=== PATIENT | male | born 1970 | race Caucasian/White ===

== ENCOUNTER → 2017-04-03 | Outpatient (CLI) | payer OTHER | LOC: FIMAGING 18:18 | PROVIDERS: ATTEND Family Medicine | DX: S83.241A Other tear of medial meniscus, current injury, right knee, initial encounter (principal); M22.41 Chondromalacia patellae, right knee ==

== ENCOUNTER 2017-11-16 13:19 | Emergency (ER) | payer OTHER ==
[2017-11-16] MEDS ORDERED: NS 1,000 ML IV ONE (13:42)
--- NOTE | 2017-11-16 14:05 | EDPHY ---
H & P Stated Complaint: LLQ pain x 4d , Eat/drinking/voiding normal Time Seen by Provider: 11/16/17 13:28 HPI/ROS: This patient complains of 4 day history of left sided abdominal pain that he feels in the left mid belly and lower quadrant. The pain has been achy in nature and he feels that there may be a slight pulse to that same area of his belly compared to baseline. He reports pain peak intensity 5 to 6/10 and current pain at 2/10. Pain worsens at times with a certain movements although he was able to do sit-ups last night without any worsening of the pain. He he reports that the nature the pain feels similar to a gas pain except that it has been constant stay since its onset. He tried Gas-X without any improvement. He reports normal bowel movements without significant change in consistency or color. His last BM was this morning. He presented initially to an urgent care with the symptoms-[facility] urgent care and concerned about potential abdominal diagnoses they referred him to our emergency department for further evaluation. ROS: Constitutional: No fevers. No other constitutional symptoms HEENT: No URI symptoms, sore throat or other complaints new line pulmonary: No shortness of breath or cough Cardiovascular: He denies any heart palpitations or lightheadedness. No chest pain. GI: No nausea vomiting. He denies any worsening of the pain with Valsalva maneuver. He notes no bulge with Valsalva or with sit-ups. : No flank pain posteriorly suspect pain. No testicular pain or swelling. No change in the color of his urine. Integumentary: No diaphoresis or skin rash Endocrine: No complaints complete review of symptoms otherwise negative Source: Patient Exam Limitations: No limitations - Personal History Current Tetanus Diphtheria and Acellular Pertussis (TDAP): Yes - Medical/Surgical History Other PMH: gout. sleep apnea. liposuction - Family History Significant Family History: No pertinent family hx - Social History Smoking Status: Former smoker Alcohol Use: Occasionally Drug Use: None - Physical Exam Exam: General Appearance: Alert, no distress. Eyes: Pupils equal and round no pallor or injection. ENT, Mouth: Mucous membranes moist. Respiratory: There are no retractions, lungs are clear to auscultation. Cardiovascular: Regular rate and rhythm. No murmur gallop or rub. No pulsatile abdominal masses appreciated. He has symmetric lower extremity pulses bilaterally. Gastrointestinal: Normoactive, soft, mild left lower quadrant and left mid belly tenderness with no guarding or rebound. Perhaps some slight prominence to the 2nd to the right but no reducible hernia. No gross distension. No organomegaly. Back: No CVA tenderness Neurological: GCS 15 Skin: Mildly diaphoretic. No rash. Otherwise normal Extremities are symmetrical, full range of motion. Psychiatric: Mood and affect normal DIFFERENTIAL DIAGNOSIS: After history and physical exam differential diagnosis was considered for mesenteric adenitis, constipation, diverticulitis, UTI, ureteral stone, hernia unlikely Constitutional: Initial Vital Signs Temperature (C) 37 C 11/16/17 13:26 Heart Rate 75 11/16/17 13:26 Respiratory Rate 16 11/16/17 13:26 Blood Pressure 138/84 H 11/16/17 13:26 O2 Sat (%) 95 11/16/17 13:26 O2 Delivery Mode Room Air Allergies/Adverse Reactions: No Known Allergies Allergy (Verified 11/16/17 13:32) Home Medications: Medication Instructions Recorded Allopurinol 11/16/17 Aspirin EC 81 mg (*) 11/16/17 Finasteride 11/16/17 Hyoscyamine Sulfate [Levsin, 0.125 - 0.25 mg SL Q6 PRN #20 tab 11/16/17 Hyomax-Sl 0.125 mg (*)] Hyoscyamine Sulfate [Levsin, 0.125 - 0.25 mg SL Q6 PRN #20 tab 11/16/17 Hyomax-Sl 0.125 mg (*)] Medical Decision Making ED Course/Re-evaluation: Studies: POC CBC, basic metabolic panel and urine dip are all normal Patient declined any analgesics while here. Discussion: This patient with left-sided abdominal pain of unclear etiology is spontaneously improving without intervention over the past 5 days but due to lingering symptoms he presented to 1st an urgent care and then here for workup. Her reports 2/10 discomfort currently. His exam does not reveal clinical findings consistent with hernia. I think the subtle asymmetry he notices likely there prior to the onset of symptoms may be related to slightly asymmetric liposuction. He has no findings consistent with inguinal hernia on exam, with normal CBC and spontaneously improving symptoms I doubt active diverticulitis. We ruled out UTI. Does not have a surgical abdomen. I think that he may have had some changes in bowel motility based on his change in diet on vacation a contributed to his symptoms. Based on this will provide a Levsin script in case he has more cramping discomfort. He will follow up with primary care physician and understands need to return emergency department should he have any significant worsening of symptoms despite the treatment plan. - Data Points Laboratory Results: 11/16/17 14:05 POC Sodium 142 mEq/L mEq/L (135-145) POC Potassium 4.1 mEq/L mEq/L (3.3-5.0) POC Chloride 106.0 mEq/L mEq/L (97-110) POC Total CO2 25 mEq/L mEq/L (22-31) POC BUN 18 mg/dL mg/dL (7-23) POC Creatinine 1.2 mg/dL mg/dL (0.7-1.3) POC Glucose 96 mg/dL mg/dL (70-100) POC Calcium 9.9 mg/dL mg/dL (8.5-10.4) Point of Care Test Results: CBC CBC Collection Date 11/16/17 CBC Collection Time 14:00 WBC 8.1 RBC 5.09 HGB 14.8 HCT 44.1 PLT 260 Neut # 5.9 Neut 73.3 LYMPH # 1.7 LYMPH 20.7 Other WBC # 0.5 Other WBC 6.0 MCV 86.6 Chemistry 11/16/17 14:05 POC Sodium 142 mEq/L mEq/L (135-145) POC Potassium 4.1 mEq/L mEq/L (3.3-5.0) POC Chloride 106.0 mEq/L mEq/L (97-110) POC Total CO2 25 mEq/L mEq/L (22-31) POC BUN 18 mg/dL mg/dL (7-23) POC Creatinine 1.2 mg/dL mg/dL (0.7-1.3) POC Glucose 96 mg/dL mg/dL (70-100) POC Calcium 9.9 mg/dL mg/dL (8.5-10.4) Urine Dip Collection Date 11/16/17 Collection Time 13:48 Specific [place] (1.002-1.030) 1.020 PH (5.0-7.5) 5.5 Leukocytes (Negative) Negative Nitrites (Negative) Negative Protein (Negative) Negative Glucose (Negative) Negative Ketones (Negative) Negative Urobilnogen (0.2-1.0 EU) 0.2 Bilirubin (Negative) Negative Blood (Negative) Negative Departure - Departure Disposition: Home, Routine, Self-Care Clinical Impression: Abdominal pain, acute, left lower quadrant Condition: Good Instructions: Diverticulitis Diet (ED) Additional Instructions: Diagnosis: Left lower quadrant abdominal pain-improving Your labs today-complete blood count, basic metabolic panel and urinalysis are normal. Plan: Drink plenty of fluids Tylenol and/or ibuprofen for any ongoing discomfort. In addition, try Levsin for crampy pain Call your primary care physician for recheck for any ongoing symptoms do not resolve over the next day or 2 with treatment plan. Return emergency department if he developed worsening despite the treatment plan. Referrals: Cornelio Acuña DO [Primary Care Provider] - As per Instructions Prescriptions: Hyoscyamine Sulfate [Levsin, Hyomax-Sl 0.125 mg (*)] 0.125 - 0.25 mg SL Q6 PRN # 20 tab PRN Reason: abdominal cramping Hyoscyamine Sulfate [Levsin, Hyomax-Sl 0.125 mg (*)] 0.125 - 0.25 mg SL Q6 PRN # 20 tab PRN Reason: abdominal cramping
[2017-11-16 15:01] VITALS: BP 133/82
== END 2017-11-16 15:00 | disposition home or self-care (01) ==
LOC: CED 13:19
DX: R10.32 Left lower quadrant pain (principal); Z79.82 Long term (current) use of aspirin; Z87.891 Personal history of nicotine dependence
CPT/HCPCS: 80048-PO

== ENCOUNTER 2018-03-28 08:37 | Observation (INO) | payer OTHER ==
[2018-03-28] MEDS ORDERED: BACITRACIN ZINC 14.2 GM OINTTUBE TP ONE (08:59)
[2018-03-28] MEDS ORDERED: LIDOCAINE 1% 300 MG/30 ML SDV ONE (09:00)
[2018-03-28] MEDS ORDERED: EPINEPHrine 1 MG/ML INJ ONE (09:00)
[2018-03-28] MEDS ORDERED: LIDO/EPI 1% **for epidural** 30 ML SDV ONE (09:05)
[2018-03-28] MEDS ORDERED: LIDOCAINE 1% 2 ML INJ ID PRN (09:11)
[2018-03-28] MEDS ORDERED: LR 1,000 ML IV ONE (09:11)
[2018-03-28] MEDS ORDERED: ceFAZolin 3 GM in D5W 100 ML IV ONE (09:51)
[2018-03-28] MEDS ORDERED: DEXAMETHASONE 10 MG/ML VIAL IVP ONE (09:51)
--- NOTE | 2018-03-28 09:51 | PDHPUP ---
History & Physical Update H&P update statement: This history and physical update is based on an assessment of the patient which was completed after admission or registration (within 24 hours), but prior to the surgery/procedure. H&P update: H&P reviewed & patient examined, no change in patient's condition since H&P completed
[2018-03-28] MEDS ORDERED: MIDAZOLAM 2 MG/2 ML VIAL IVP ONE (09:52)
--- NOTE | 2018-03-28 09:52 | PDANEPAE ---
ANE History of Present Illness Thyroidectomy ANE Past Medical History - Cardiovascular History Hx Hypertension: No Hx Arrhythmias: No Hx Chest Pain: No Hx Coronary Artery / Peripheral Vascular Disease: No Hx CHF / Valvular Disease: No Hx Palpitations: No - Pulmonary History Hx COPD: No Hx Asthma/Reactive Airway Disease: No Hx Recent Upper Respiratory Infection: No Hx Oxygen in Use at Home: No Hx Sleep Apnea: Yes Sleep Apnea Screening Result - Last Documented: Positive Pulmonary History Comment: yaz positive- uses oral appliance only - Neurologic History Hx Cerebrovascular Accident: No Hx Seizures: No Hx Dementia: No - Endocrine History Hx Diabetes: No Endocrine History Comment: current thyroid nodule - Renal History Hx Renal Disorders: No 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 liposuction ANE Review of Systems Review of systems is: negative Review of Systems: - Exercise capacity METS (RN): 5 METS ANE Patient History - Allergies Allergies/Adverse Reactions: No Known Allergies Allergy (Verified 03/27/18 11:19) - Home Medications Home medications: home medication list seen and reviewed Home Medications: Allopurinol [Allopurinol 300 MG (RX)] 300 mg PO HS 11/16/17 [Last Taken Unknown] Finasteride [Proscar 5 MG (*)] 2.5 mg PO HS 11/16/17 [Last Taken Unknown] Aspirin [Aspirin 81mg (*)] 81 mg PO HS 03/23/18 [Last Taken 03/20/18] Herbals/Supplements -Info Only 1 ea PO DAILY 03/23/18 [Last Taken 03/27/18] - NPO status NPO Status: no food or drink >8 hours NPO Since - Liquids (Date): 03/27/18 NPO Since - Liquids (Time): 23:00 NPO Since - Solids (Date): 03/27/18 NPO Since - Solids (Time): 21:00 - Anes Hx Anes Hx: no prior problems - Smoking Hx Smoking Status: Former smoker - Family Anes Hx Family Anes Hx: none Family Hx Anesthesia Complications: none ANE Labs/Vital Signs - Vital Signs Vital Signs: reviewed preoperatively; see RN documention for details Blood Pressure: 149/81 Heart Rate: 69 Respiratory Rate: 16 O2 Sat (%): 96 Height: 195.58 cm Weight: 124.738 kg ANE Physical Exam - Airway Neck exam: FROM Mallampati Score: Class 1 Mouth exam: normal dental/mouth exam - Pulmonary Pulmonary: no respiratory distress - Cardiovascular Cardiovascular: regular rate and rhythym - ASA Status ASA Status: II ANE Anesthesia Plan Anesthesia Plan: general endotracheal anesthesia
[2018-03-28] MEDS ORDERED: DEXAMETHASONE 10 MG/ML VIAL ONE (09:55)
[2018-03-28] MEDS ORDERED: MIDAZOLAM 2 MG/2 ML VIAL ONE (09:56)
[2018-03-28] MEDS ORDERED: LIDOCAINE 2% 100 MG/5 ML SYR ONE (09:59)
[2018-03-28] MEDS ORDERED: DEXAMETHASONE 4 MG/ML VIAL ONE (09:59)
[2018-03-28] MEDS ORDERED: ROCURONIUM 50 MG/5 ML VIAL ONE (09:59)
[2018-03-28] MEDS ORDERED: ONDANSETRON 4 MG/2 ML VIAL ONE ×2 (09:59→13:11)
[2018-03-28] MEDS ORDERED: fentaNYL 250 MCG/5 ML INJ ONE (10:00)
[2018-03-28] MEDS ORDERED: PROPOFOL 200 MG/20 ML VIAL ONE ×2 (10:00→10:40)
[2018-03-28] MEDS ORDERED: ONDANSETRON 4 MG/2 ML VIAL IVP PRN ×2 (11:03→12:55)
[2018-03-28] MEDS ORDERED: oxyCODONE IR 5 MG TAB PO PRN (11:03)
[2018-03-28] MEDS ORDERED: NALOXONE HCL 0.4 MG/ML INJ IVP PRN (11:03)
[2018-03-28] MEDS ORDERED: MEPERIDINE 25 MG/0.5 ML AMP IVP PRN (11:03)
[2018-03-28] MEDS ORDERED: DEXAMETHASONE 4 MG/ML VIAL IVP PRN (11:03)
[2018-03-28] MEDS ORDERED: HYDROCODONE/APAP 5/325 TAB PO PRN (11:03)
[2018-03-28] MEDS ORDERED: PROMETHAZINE HCL 25 MG/ML INJ IVP PRN (11:03)
[2018-03-28] MEDS ORDERED: ACETAMINOPHEN 500 MG TAB PO PRN (11:03)
--- NOTE | 2018-03-28 11:03 | POSTANESTH ---
Post Anesthetic Evaluation Cardiovascular Status: Normal, Stable, Similar to Pre-Op Cond Respiratory Status: Similar to Pre-op Cond. Level of Consciousness/Mental Status: Can Participate in Eval Pain Control: Adequate, Prn Tx Ordered Nausea/Vomiting Control: Adequate, Prn Tx Ordered Complications Possibly Related to Anesthesia: None Noted
[2018-03-28] MEDS ORDERED: OXYCODONE/APAP 5/325 TAB PO PRN (12:55)
--- NOTE | 2018-03-28 12:55 | POSTOPPROG ---
Post Op Note Date of Operation: 03/28/18 Surgeon: Bret Stinson Housekeeping Room Inspector: Dion Ardon Anesthesiologist: Josue Hernández Pre-op Diagnosis: Papillary thyroid carcinoma Post-op Diagnosis: same Indication: FNA positive for cancer Procedure: Total thyroidectomy with right central neck dissection Findings: Hard tumor in the right superiro pole of the thyroid gland close to rln Inf/Abcess present in the surg proc area at time of surgery?: No Depth: Organ Space EBL: 50-100 Complications: none Drains: Donte Obregon (10 FR) Specimen(s): 1. thyroid gland 2. right central neck anthony tissue
[2018-03-28] MEDS ORDERED: fentaNYL 100 MCG/2 ML INJ ONE (13:21)
[2018-03-28] MEDS: fentaNYL 100 MCG/2 ML INJ IVP PRN ×2 (13:23→13:34)
[2018-03-28] MEDS ORDERED: HYDROmorphONE/DILAUDID 2 MG/ML INJ ONE (13:41)
[2018-03-28] MEDS: HYDROmorphONE/DILAUDID 2 MG/ML INJ IVP PRN ×3 (13:42→14:12)
[2018-03-28] MEDS: D5W 1/2 NS W/ 20 KCl/L 1,000 ML IV SCH (14:34)
[2018-03-28] MEDS ORDERED: traMADol 50 MG TAB PO PRN (17:21)
--- NOTE | 2018-03-28 17:25 | SOAPPROG ---
SOAP Progress Note Assessment/Plan: Assessment: Pt doing well aside from the nausea. Calcium is normal Plan: Try phenergan, tramadol, and tylenol. Will try to avoid more narcotics if possible. 03/28/18 17:22 Subjective: Pt complains of nausea. nno sxs of ow calcium Objective: Voice is clear no SOB Vital Signs Temp Pulse Resp BP Pulse Ox 36.6 C 72 20 153/93 H 95 03/28/18 17:05 03/28/18 17:05 03/28/18 17:05 03/28/18 17:05 03/28/18 17:05 03/27/18 03/28/18 03/29/18 05:59 05:59 05:59 Intake Total 1500 Output Total 120 Balance 1380 ICD10 Worksheet Patient Problems: Problems Problem Status Onset Papillary thyroid carcinoma Acute Sleep apnea in adult Acute - ICD10 Problem Qualifiers (1) Papillary thyroid carcinoma (2) Sleep apnea in adult
[2018-03-28] MEDS: PROMETHAZINE HCL 25 MG/ML INJ IVP PRN ×2 (17:28→18:01)
[2018-03-28] MEDS: ACETAMINOPHEN 500 MG TAB PO PRN (18:13)
--- NOTE | 2018-03-28 22:31 | GOP ---
DATE OF OPERATION: 03/28/2018 SURGEON: Bret Stinson MD TIP FIXER: Dion Ardon MD. ANESTHESIA: General. PREOPERATIVE DIAGNOSIS: Right papillary thyroid carcinoma. POSTOPERATIVE DIAGNOSIS: Right papillary thyroid carcinoma. PROCEDURE PERFORMED: 1. Total thyroidectomy. 2. Right central compartment neck dissection. FINDINGS: A rock-hard mass, approximately 0.5 x 1 x 1 cm in size in the superior pole of the right t hyroid lobe closely adherent to the recurrent laryngeal nerve. Both recurrent laryngeal nerves were identified and preserved. I identified the parathyroid glands on the right side and the inferior gla nd on the left. There was a hard mass in the right tracheoesophageal groove which was excised and se nt with the surrounding lymphatic tissue as a separate specimen. SPECIMENS: 1. Thyroid gland. 1. Right paratracheal tissue. 2. ESTIMATED BLOOD LOSS: 50 mL. INDICATIONS: The patient is a 47-year-old man with a fine-needle aspiration biopsy showing papillary thyroid carcinoma in the right thyroid lobe. DESCRIPTION OF PROCEDURE: Patient was taken to the OR, positively identified and placed on monitors, and general anesthesia was induced. The neck was prepped and draped in normal sterile fashion. An incision was marked out on the anterior neck skin crease and infiltrated with 5 cc of 1% lidocaine wi th 1:100,000 epinephrine. The skin was then sharply incised. Dissection was then carried down to th e platysma. Superior and inferior subplatysmal flaps were then raised and secured with stay sutures. The strap muscles were divided in the midline and elevated off the thyroid gland. The right superi or vascular pedicle was isolated, clamped, cut, and ligated with a stick tie. Dissection was carried along the thyroid capsule inferiorly, tying off the middle thyroid vein and the inferior vascular pe dicle. The left thyroid lobe was then rotated medially following the capsule closely, identifying th e recurrent laryngeal nerve, dividing Marsh's ligament and sweeping it off the trachea. Attention wa s turned to the right side, and the same procedure was done. In this case the tumor was found to be adherent to the tissues around the distal aspect of the recurrent laryngeal nerve near Marsh's ligame nt. However, there was a clean plane of dissection between the nerves and the tumor. I did not see evidence of gross invasion. Following release of Marsh's ligament, the gland was swept medially off the trachea. I then dissected off the pyramidal lobe, and the specimen was sent for pathologic evalu ation. Palpation of the neck revealed a hard mass in the right paratracheal tissue. This was dissected away with the surrounding fatty and lymphatic tissue. The wound was then irrigated with sterile saline. Hemostasis was assured, and a drain was placed through a separate stab incision. The wound was then closed in a layered fashion using a Vicryl, Monocryl, and Prolene. A pressure dressing was placed, and the case terminated. The patient was taken to postop care in good condition having tolerated pro cedure well. COMPLICATIONS: None. Copy requested to: Dr. Snehal Turner /[id number]/MODL
[2018-03-29] MEDS: ACETAMINOPHEN 500 MG TAB PO PRN ×2 (02:29→10:41)
[2018-03-29] MEDS: D5W 1/2 NS W/ 20 KCl/L 1,000 ML IV SCH (02:30)
[2018-03-29 08:45] VITALS: BP 142/76
--- NOTE | 2018-03-29 11:06 | PDDCSUM ---
Discharge Summary Discharge Summary: Pt POD #1 s/p thyroidectomy. Doing well. AFVSS. Neck flat. Voice strong. Calcium borderline. Okay for d/c. Will start 2 tums BID until follow up visit next week. Plan reviewed with Dr. Stinson
== END 2018-03-29 11:28 | disposition home or self-care (01) ==
LOC: F3E 08:37
PROVIDERS: ADMIT Otolaryngology; ATTEND Otolaryngology
PROC: 0GTK0ZZ Resection of Thyroid Gland, Open Approach (ICD-10-PCS; principal; 2018-03-28 10:00)
DX: C73 Malignant neoplasm of thyroid gland (principal); G47.33 Obstructive sleep apnea (adult) (pediatric)
CPT/HCPCS: 60240; G0378; J0171; J0690; J1100; J1170; J2001; J2250; J2270; J2405; J2550; J2704; J3010

== ENCOUNTER → 2018-06-06 | Outpatient (CLI) | payer OTHER | LOC: FIMAGING 14:26 ==